=== PATIENT | female | born 1970 | race Caucasian/White ===

== ENCOUNTER 2019-08-21 05:00 | Emergency (ER) | payer OTHER ==
[~2019-08-21] VITALS: Ht 170.2 cm; Wt 137.0 kg
[2019-08-21 05:05] VITALS: Ht 170.2 cm; Wt 137.0 kg
[2019-08-21 06:01] VITALS: BP 136/85
== END 2019-08-21 06:01 | disposition home or self-care (01) ==
LOC: ED 05:00
DX: F41.9 Anxiety disorder, unspecified (principal); Z88.2 Allergy status to sulfonamides; E11.9 Type 2 diabetes mellitus without complications; Z88.8 Allergy status to other drugs, medicaments and biological substances; Z90.49 Acquired absence of other specified parts of digestive tract; Z90.89 Acquired absence of other organs

== ENCOUNTER 2019-09-11 23:18 | Inpatient (IN) | payer OTHER ==
[~2019-09-11] VITALS: Ht 170.2 cm; Wt 135.7 kg
[2019-09-11 23:23] VITALS: Ht 170.2 cm; Wt 135.7 kg
--- NOTE | 2019-09-11 23:49 | NUR ---
PT PRESENTS TO ED WITH C/C OF SOB AND CHEST PAIN. PT REPORTS "I'M JUST GASPING AND LIKE IT FEELS LIKE SOMETHING HEAVY IS SITTING ON MY CHEST." PT REPORTS CHEST PAIN IS RADIATING TO ARMS AND LEGS. PT IS ALSO REPORTING HEADACHE, DESCRIBED "A RUBBER BAND AROUND MY HEAD." PT IS SPEAKING IN FULL CLEAR SENTENCES, PT IS HYPERVENTILATING, STATES "I'M JUST GASPING AND I DON'T KNOW WHY." SPO2 @ 98%. PT ALSO REPORTS A "RUNNY NOSE", "SNEEZING", NAUSEA AND DIARRHEA X2 DAYS. PT DENIES COUGH, DENIES FEVER. REPORTS SHE WAS SEEN YESTERDAY BY PMD AND TESTED NEGATIVE FOR THE FLU AND STREP. PT IS AWAKE, AAOX4, TREMOR AND SHAKING NOTED TO BILATERAL LOWER EXTREMITIES. PT REPORTS "THIS IS NEW FOR ME. I DONT KNOW WHY IT'S HAPPENING." DR. PIMENTEL MADE AWARE. AWAITING MSE. CALL LIGHT IN REACH.
[2019-09-12 00:19] LABS: BASOPHIL % 0.3 % (0-2); PLATELET COUNT 359 x10^3mcL (130-400)
[2019-09-12 00:20] LABS: RED CELL DISTRIBUTION WIDTH 17.3 % (11.5-14.5)
--- NOTE | 2019-09-12 00:20 | NUR ---
PATIENT INSTRUCTED TO PROVIDE URINE SAMPLE MANJULA.
[2019-09-12 00:26] LABS: CALCIUM 9.4 mg/dL (8.5-10.1); CHLORIDE SERUM 105 mmol/L (98-107); CREATININE SERUM 0.9 mg/dL (0.6-1.0); GFR1 > 60 mL/min; GLUCOSE SERUM 108 mg/dL (74-106); POTASSIUM SERUM 3.8 mmol/L (3.5-5.1); SODIUM SERUM 141 mmol/L (136-145)
[2019-09-12 00:38] LABS: ALBUMIN 3.4 g/dL (3.4-5.0); ALKALINE PHOSPHATASE 153 U/L (46-116); ALT/SGPT 61 U/L (14-59); AST/SGOT 41 U/L (15-37); BILIRUBIN TOTAL 0.5 mg/dL (0.20-1.00); LIPASE 121 IU/L (73-393); TOTAL PROTEIN, SERUM 7.8 g/dL (6.4-8.2)
[2019-09-12 03:58] LABS: UA SPECIFIC GRAVITY >=1.030 (1.005-1.035); microscopic required? YES; urine erythrocyte TRACE (NEGATIVE)
--- NOTE | 2019-09-12 04:02 | NUR ---
REPORT GIVEN TO JANENE MANSFIELD IN TELE.
[2019-09-12 04:05] LABS: FREE T4 1.17 ng/dL (0.76-1.46); FREE THYROXINE INDEX 3.2 ug/dL (1.4-4.5); T4(THYROXINE) 11.1 ug/dL (4.7-13.3)
[2019-09-12 04:07] LABS: AMPHETAMINE QUAL UR NONE DETECTED (See below)
[2019-09-12 04:08] LABS: T3 TOTAL 1.05 ng/mL
--- NOTE | 2019-09-12 04:10 | NUR ---
PT ARRIVED ON THE FLOOR FROM ER VIA [facility] ACCOMAPNIED BY NURSE. PT IS ADMITTED W/ C/O BACK PAIN RADIATING TO THE CHEST. SHE IS ALERT,ORIENTED X4 . SHE IS C/O HEADACHE , BACK AND CHEST PAIN 9/10. PT DENIED HAVING COUGH. LUNG SOUNDS CLEAR. NO SOB ON ROOM AIR. BOWEL SOUNDS ACTIVE. ABDOMEN IS OBESE AND SOFT. NO C/O N/V. SHE DENIED DYSURIA. W/ HL TO RT WRIST. PT ORIENTED TO ROOM AND INSTRUCTED ON THE USE OF CALL LIGHT.
[2019-09-12 04:43] VITALS: BP 127/81
--- NOTE | 2019-09-12 06:20 | NUR ---
PT SEEN BY DR. MARTINEZ. PTTOLD DR. MARTINEZ THAT MORPHINE DID NOT HELP WITH THE PAIN.
[2019-09-12] MEDS ORDERED: LEVOTHYROXIN0.075 M2 PO (08:27)
[2019-09-12 08:28] VITALS: BP 144/82
[2019-09-12] MEDS ORDERED: TOPIRAMATE200 M1 PO (08:28)
[2019-09-12] MEDS ORDERED: BUPROPION HCL150 M1 PO (08:28)
[2019-09-12] MEDS ORDERED: TIZANIDINE4 M1 PO (08:28)
[2019-09-12] MEDS ORDERED: LEVOTHYROXINE0.2 M2 PO (08:28)
[2019-09-12] MEDS ORDERED: TRAZODONE100 MG PO (08:29)
[2019-09-12] MEDS ORDERED: XARELTO20 M1 PO (08:29)
[2019-09-12] MEDS ORDERED: BUSPIRONE HCL10 MG PO (08:30)
[2019-09-12] MEDS ORDERED: ACETAMINOPHEN &1 TA1 PO (08:30)
[2019-09-12] MEDS ORDERED: TRAMADOL HCL50 MG PO (08:30)
[2019-09-12] MEDS ORDERED: ROPINIROLE PO (08:30)
--- NOTE | 2019-09-12 08:30 | NUR ---
ALERT AND ORIENTED. BREATHING FREELY ON RA. SAYS SHE HAS INCREASED CHEST PAIN WITH DEEP BREATHING. MIDSTERNAL CHEST PAIN RADIAITING TO BACK. NS INFUSING 100 CC HOUR TO RT WRIST. BRP. SLIGHT GENERALIZED WEAKNESS. VSS. CALL LIGHT WITHIN REACH. TELE # [address] WAVE.
[2019-09-12 16:52] VITALS: BP 144/83
--- NOTE | 2019-09-12 19:48 | NUR ---
PT WAS PLACED ON ISOLATION TO R/O COVID. SENT [facility] FOR COVID AND INFLUENZA A & B TO LAB. ONGOING MEDSTERNAL PAIN RADIATING TO BACK. NEW ORDER INCREASE MORPHINE TO 3 MG IV. ECHO COMPLETED. PT SEEN BY DR. FERRER. DR. FERRER WANTED TO SEE ECHO BEFORE PT WAS DC'D TO HOME. WANTS TO R/O PERIOCARDITIS. INDEPENDENT W ADL'S. CALL LIGHT WITHIN REACH.
[2019-09-12 20:00] VITALS: BP 150/82
--- NOTE | 2019-09-12 20:00 | NUR ---
RECEIVED PT AWAKE ALERT AND VERBALLY RESPONSIVE.C/O CHEST DISCOMFORT NON-RADIATING TO ARMS 9/10 TO PRESSURE LIKE PAIN.BP 150/82 MMHG,HR 89.MORPHINE 3 MG IVP ADMINISTERED.ON AND OFF COUGHING NOTED WITH C/O SORETHROAT AND +PHLEGM.DENIES SOB/DIFFICULTY BREATHING.TOLERATING ROOMAIR @ 97.4F.O2 SAT @ 96% RA.ON DROPLET PRECAUTION FOR PUI COVID.WILL OBSERVE GOODHANDWASHIGNTECHNIQUE.WILL CONTINUE TO MONITOR.
--- NOTE | 2019-09-13 04:39 | NUR ---
PT SLEPT WITH INTERVALS.CONTINUES TO C/O CHEST DISCOMFORT.8/10 TO PRESSURE LIKE PAIN.MORPHINE 3 MG IVP GIVEN ALMOST Q3H NEEDED WITH SOME RELIEF.ON DROPLET PRECAUTION FOR POSSIBLE COVID-PUI.GOODHANDWASHIGN TECHNIQUE OBSERVED.ALL NEEDS MET.WILL CONTINUE TO MONITOR.
[2019-09-13 06:27] VITALS: BP 132/73
--- NOTE | 2019-09-13 07:10 | NUR ---
SEEN AOX4, NOT IN DISTRESS, TELE 18, NSR WITH DEPRESSED ST, PALPABLE PULSES, NO EDEMA, CTA ON BLF, +BS, LAST BM 09/13/19, VOIDS WITH NO DYSURIA, GENERALIZED WEAKNESS, FULL ROM, SKIN DRY AND INTACT, CHEST PAIN AND HEADACHE 02/22 , IV INTACT AND PATENT, NO REDNESS OR INFILTRATION. CALL LIGHT WITHIN REACH. BED AT LOWETS POSITION.
[2019-09-13 07:36] LABS: CALCIUM 8.8 mg/dL (8.5-10.1); CARBON DIOXIDE 27.6 mmol/L (21-32); CHLORIDE SERUM 107 mmol/L (98-107); CREATININE SERUM 0.8 mg/dL (0.6-1.0); GFR1 > 60 mL/min; GLUCOSE SERUM 88 mg/dL (74-106); MAGNESIUM 1.8 mg/dL (1.8-2.4); PHOSPHOROUS 3.7 mg/dL (2.5-4.9); POTASSIUM SERUM 4.1 mmol/L (3.5-5.1); SODIUM SERUM 142 mmol/L (136-145)
[2019-09-13 07:48] VITALS: BP 168/84
[2019-09-13 08:36] LABS: BASOPHIL % 0.4 % (0-2); PLATELET COUNT 257 x10^3mcL (130-400)
--- NOTE | 2019-09-13 08:56 | NUR ---
MEDICATIONS GIVEN PER EMAR. MORPHIN IVP GIVEN FOR CHEST P AND HEADACHE 02/22/
[2019-09-13 08:59] LABS: RED CELL DISTRIBUTION WIDTH 17.2 % (11.5-14.5)
[2019-09-13 10:18] LABS: BILIRUBIN DIRECT 0.23 mg/dL (0.0-0.2); BILIRUBIN TOTAL 0.56 mg/dL (0.20-1.00); TOTAL PROTEIN, SERUM 6.3 g/dL (6.4-8.2)
[2019-09-13 10:19] LABS: ALBUMIN 3.1 g/dL (3.4-5.0)
--- NOTE | 2019-09-13 12:04 | NUR ---
MORPHINE IVP GIVEN FOR CHEST PAIN, 02/22.
[2019-09-13] MEDS ORDERED: CIPRO500 MG PO (14:33)
[2019-09-13 15:46] VITALS: BP 168/84
--- NOTE | 2019-09-13 16:53 | NUR ---
DR FERRER SEEN PATIENT. PER DR FERRER, PATIENT IS OK. NON CARDIAC CONDITION.
--- NOTE | 2019-09-13 17:25 | NUR ---
DISCHARGE INSTRUCTIONS GIVEN TO PATIENT, INSTRUCTED TO BRING MASK AND PROTECT OTHERS FROM INFECTION WITH MASK, TO QUARANTINE FOR 15 DAYS, TO GO TO ER IF S/S IS WORSE, TO FF UP WITH APPOINTMENT WITH PCP, TO EXPECT A CALL FROM INFECTIOUS DISEASE NURSE IF COVID RESULT IS POSITIVE. TELE 18 REMOVED AND GIVEN TO [facility]ES[facility]. ID BAND AND IV REMOVED
[2019-09-13 17:41] VITALS: BP 147/83
--- NOTE | 2019-09-13 18:07 | NUR ---
DISCHARGE PER WHEEL CHAIR ACCOMPANIED BY SELF. PATIENT WAS WEARING MASK WHILE TRANSPORTED OUT
--- NOTE | 2019-09-16 13:50 | NUR ---
INFECTION PREVENTION REPORT FROM LAB RE. SAPPHIRE SPECIMEN NEEDING TO BE RE-COLLECTED SPOKE WITH PATIENT AT LENGTH ABOUT THIS. SHE CONVERSED WITH HER AND THEY DECIDED SHE WOULD NOT TEST AGAIN. SHE HAS CONCERNS ABOUT GOING TO THE ER AND BEING EXPOSED. SHE STATES SHE IS FEELING BETTER AND NO ONE ELSE IN THE HOUSE ( AND CHILDREN) IS UNWELL. ASKED HER TO CALL BACK IF SHE CHANGES HER MIND OR HAS CONCERNS.
== END 2019-09-13 18:07 | disposition home or self-care (01) | DRG 206 ==
LOC: ED 23:18 → DU 09-12 02:48
PROVIDERS: Emergency Medicine; Internal Medicine; ADMIT Internal Medicine
DX: M94.0 Chondrocostal junction syndrome [Tietze] (principal); Z68.42 Body mass index [BMI] 45.0-49.9, adult; K21.9 Gastro-esophageal reflux disease without esophagitis; I45.81 Long QT syndrome; A08.4 Viral intestinal infection, unspecified; R74.0 Nonspecific elevation of levels of transaminase and lactic acid dehydrogenase [LDH]; G47.00 Insomnia, unspecified; E89.0 Postprocedural hypothyroidism; M79.7 Fibromyalgia; E78.5 Hyperlipidemia, unspecified; E66.01 Morbid (severe) obesity due to excess calories; F32.9 Major depressive disorder, single episode, unspecified; F41.9 Anxiety disorder, unspecified; Z20.828 Contact with and (suspected) exposure to other viral communicable diseases; Z86.718 Personal history of other venous thrombosis and embolism; Z88.2 Allergy status to sulfonamides; Z85.850 Personal history of malignant neoplasm of thyroid; Z88.8 Allergy status to other drugs, medicaments and biological substances; Z90.49 Acquired absence of other specified parts of digestive tract; Z90.89 Acquired absence of other organs; Z90.6 Acquired absence of other parts of urinary tract; Z90.710 Acquired absence of both cervix and uterus; Z90.722 Acquired absence of ovaries, bilateral
CPT/HCPCS: 83880; 84439; 87804; G0378; J1885; J2270; J2405; J7030; Q0092; Q9967; U0002

== ENCOUNTER 2019-09-27 15:32 | Emergency (ER) | payer OTHER, SELFPAY ==
[~2019-09-27] VITALS: Ht 170.2 cm; Wt 127.0 kg
[~2019-09-27 15:32] MED LIST: ACETAMINOPHEN &1 TA1 PO; BUPROPION HCL150 M1 PO; BUSPIRONE HCL10 MG PO; CIPRO500 MG PO; LEVOTHYROXIN0.075 M2 PO; LEVOTHYROXINE0.2 M2 PO; ROPINIROLE PO; TIZANIDINE4 M1 PO; TOPIRAMATE200 M1 PO; TRAMADOL HCL50 MG PO; TRAZODONE100 MG PO; XARELTO20 M1 PO
[2019-09-27 16:21] VITALS: Ht 170.2 cm; Wt 127.0 kg
[2019-09-27 17:21] LABS: BASOPHIL % 0.3 % (0-2); PLATELET COUNT 314 x10^3mcL (130-400)
[2019-09-27 17:25] LABS: RED CELL DISTRIBUTION WIDTH 16.5 % (11.5-14.5)
[2019-09-27] MEDS ORDERED: WELLBUTRIN SR100 M1 (17:31)
[2019-09-27] MEDS ORDERED: ATIVAN1 MG PO (17:31)
[2019-09-27] MEDS ORDERED: PROZAC10 M2 (17:32)
[2019-09-27 17:36] LABS: CALCIUM 9.4 mg/dL (8.5-10.1); CARBON DIOXIDE 26.8 mmol/L (21-32); CHLORIDE SERUM 103 mmol/L (98-107); CREATININE SERUM 0.8 mg/dL (0.6-1.0); GFR1 > 60 mL/min; GLUCOSE SERUM 98 mg/dL (74-106); POTASSIUM SERUM 4.1 mmol/L (3.5-5.1); SODIUM SERUM 141 mmol/L (136-145)
[2019-09-27 17:37] LABS: microscopic required? NO
[2019-09-27 17:41] LABS: ALBUMIN 3.4 g/dL (3.4-5.0); ALKALINE PHOSPHATASE 87 U/L (46-116); ALT/SGPT 31 U/L (14-59); AST/SGOT 26 U/L (15-37); BILIRUBIN TOTAL 0.3 mg/dL (0.20-1.00); C REACTIVE PROTEIN 1.9 mg/dL (<=0.9); LACTIC DEHYDROGENASE (LDH) 155 U/L (100-190); LIPASE 163 IU/L (73-393); TOTAL PROTEIN, SERUM 7.3 g/dL (6.4-8.2)
[2019-09-27 18:02] LABS: UA SPECIFIC GRAVITY 1.025 (1.005-1.035); urine erythrocyte NEGATIVE (NEGATIVE)
[2019-09-27 19:40] VITALS: BP 153/81
== END 2019-09-27 19:40 | disposition home or self-care (01) ==
LOC: ED 15:32
PROVIDERS: Emergency Medicine
DX: J06.9 Acute upper respiratory infection, unspecified (principal); R07.89 Other chest pain; Z20.828 Contact with and (suspected) exposure to other viral communicable diseases; M79.7 Fibromyalgia; E11.9 Type 2 diabetes mellitus without complications; Z85.850 Personal history of malignant neoplasm of thyroid; Z88.2 Allergy status to sulfonamides; Z88.8 Allergy status to other drugs, medicaments and biological substances
CPT/HCPCS: 36600; 83880; 87804; J1885; J2270; J2405; J7030; Q0092

== ENCOUNTER 2019-10-20 18:30 | Inpatient (IN) | payer OTHER, SELFPAY ==
[~2019-10-20] VITALS: Ht 172.7 cm; Wt 138.4 kg
[~2019-10-20 18:30] MED LIST changes: +ATIVAN1 MG PO; +PROZAC10 M2 PO; +WELLBUTRIN SR100 M1 PO
[2019-10-20 18:52] VITALS: Ht 172.7 cm; Wt 138.4 kg
[2019-10-20 19:49] LABS: BASOPHIL % 0.4 % (0-2); PLATELET COUNT 303 x10^3mcL (130-400); RED CELL DISTRIBUTION WIDTH 16.3 % (11.5-14.5)
[2019-10-20 19:53] LABS: CALCIUM 9.3 mg/dL (8.5-10.1); CARBON DIOXIDE 26.8 mmol/L (21-32); CHLORIDE SERUM 105 mmol/L (98-107); CREATININE SERUM 0.7 mg/dL (0.6-1.0); GFR1 > 60 mL/min; GLUCOSE SERUM 107 mg/dL (74-106); POTASSIUM SERUM 3.9 mmol/L (3.5-5.1); SODIUM SERUM 144 mmol/L (136-145)
[2019-10-20 19:59] LABS: ALBUMIN 3.7 g/dL (3.4-5.0); ALKALINE PHOSPHATASE 95 U/L (46-116); ALT/SGPT 41 U/L (14-59); AST/SGOT 36 U/L (15-37); BILIRUBIN TOTAL 0.3 mg/dL (0.20-1.00); C REACTIVE PROTEIN 1.9 mg/dL (<=0.9); LACTIC DEHYDROGENASE (LDH) 177 U/L (100-190); TOTAL PROTEIN, SERUM 7.1 g/dL (6.4-8.2)
[2019-10-20 21:39] LABS: UA SPECIFIC GRAVITY 1.025 (1.005-1.035); microscopic required? NO; urine erythrocyte NEGATIVE (NEGATIVE)
[2019-10-20] MEDS ORDERED: FORTAMET500 M1 PO (22:15)
[2019-10-20] MEDS ORDERED: TRAZODONE HCL300 MG PO (22:18)
[2019-10-20] MEDS ORDERED: ROPINIROLE PO (22:18)
[2019-10-20 23:41] LABS: MAGNESIUM 1.7 mg/dL (1.8-2.4); PHOSPHOROUS 3.3 mg/dL (2.5-4.9)
[2019-10-20 23:45] LABS: CHOLESTEROL/HDL RATIO 6.4
[2019-10-20 23:50] VITALS: BP 191/107
[2019-10-20 23:51] LABS: FREE T4 1.99 ng/dL (0.76-1.46)
[2019-10-20 23:53] LABS: AMPHETAMINE QUAL UR NONE DETECTED (See below); FREE THYROXINE INDEX 6.2 ug/dL (1.4-4.5); T4(THYROXINE) 19.4 ug/dL (4.7-13.3)
[2019-10-21 00:15] LABS: T3 TOTAL 1.41 ng/mL
[2019-10-21 06:14] VITALS: BP 180/100
[2019-10-21 06:47] LABS: BASOPHIL % 0.3 % (0-2); PLATELET COUNT 333 x10^3mcL (130-400)
[2019-10-21 06:58] LABS: CALCIUM 9.3 mg/dL (8.5-10.1); CARBON DIOXIDE 23.2 mmol/L (21-32); CHLORIDE SERUM 103 mmol/L (98-107); CREATININE SERUM 0.8 mg/dL (0.6-1.0); GFR1 > 60 mL/min; GLUCOSE SERUM 126 mg/dL (74-106); MAGNESIUM 1.7 mg/dL (1.8-2.4); PHOSPHOROUS 4.4 mg/dL (2.5-4.9); POTASSIUM SERUM 3.9 mmol/L (3.5-5.1); SODIUM SERUM 141 mmol/L (136-145)
[2019-10-21 07:00] VITALS: BP 157/95
[2019-10-21 07:50] VITALS: BP 139/88
[2019-10-21 12:45] VITALS: BP 109/64
[2019-10-21 17:46] VITALS: BP 104/74
[2019-10-21 21:30] VITALS: BP 102/67
[2019-10-22 05:09] VITALS: BP 105/66
[2019-10-22 06:57] LABS: CALCIUM 9.1 mg/dL (8.5-10.1); CARBON DIOXIDE 26.4 mmol/L (21-32); CHLORIDE SERUM 102 mmol/L (98-107); CREATININE SERUM 0.8 mg/dL (0.6-1.0); GFR1 > 60 mL/min; GLUCOSE SERUM 97 mg/dL (74-106); MAGNESIUM 1.9 mg/dL (1.8-2.4); PHOSPHOROUS 4.9 mg/dL (2.5-4.9); SODIUM SERUM 139 mmol/L (136-145)
[2019-10-22 08:05] VITALS: BP 153/88
[2019-10-22 08:15] LABS: BASOPHIL % 0.3 % (0-2); PLATELET COUNT 269 x10^3mcL (130-400)
[2019-10-22 12:20] VITALS: BP 116/72
[2019-10-22 17:30] VITALS: BP 125/80
[2019-10-22 21:00] VITALS: BP 115/66
[2019-10-23 05:30] VITALS: BP 148/85
[2019-10-23 09:36] LABS: PLATELET COUNT 331 x10^3mcL (130-400)
[2019-10-23 09:47] LABS: RED CELL DISTRIBUTION WIDTH 14.9 % (11.5-14.5)
[2019-10-23 10:01] LABS: C REACTIVE PROTEIN 3.5 mg/dL (<=0.9); CALCIUM 9.8 mg/dL (8.5-10.1); CARBON DIOXIDE 22.7 mmol/L (21-32); CHLORIDE SERUM 102 mmol/L (98-107); CREATININE SERUM 0.9 mg/dL (0.6-1.0); GFR1 > 60 mL/min; GLUCOSE SERUM 98 mg/dL (74-106); MAGNESIUM 1.9 mg/dL (1.8-2.4); PHOSPHOROUS 5.4 mg/dL (2.5-4.9); SODIUM SERUM 138 mmol/L (136-145)
[2019-10-23 12:31] VITALS: BP 144/86
[2019-10-23 13:03] VITALS: BP 156/79
[2019-10-23 13:53] LABS: MONOCYTE 3 % (0-7); SEGMENTED NEUTROPHILS 90 % (37-75)
[2019-10-23 13:54] LABS: PLATELET MORPHOLOGY PLATELETS NORMAL; rbc morphology (normal/abnorm) ABNORMAL (NORMAL)
== END 2019-10-23 14:05 | disposition home or self-care (01) | DRG 872 ==
LOC: ED 18:30 → DU 22:20
PROVIDERS: Emergency Medicine; ADMIT Student in an Organized Health Care Education/Training Program
DX: A41.9 Sepsis, unspecified organism (principal); I16.0 Hypertensive urgency; N61.0 Mastitis without abscess; F32.9 Major depressive disorder, single episode, unspecified; E11.9 Type 2 diabetes mellitus without complications; E03.9 Hypothyroidism, unspecified; M79.7 Fibromyalgia; F41.9 Anxiety disorder, unspecified; I48.91 Unspecified atrial fibrillation; E78.5 Hyperlipidemia, unspecified; Z86.718 Personal history of other venous thrombosis and embolism; Z88.2 Allergy status to sulfonamides; Z88.8 Allergy status to other drugs, medicaments and biological substances; Z20.828 Contact with and (suspected) exposure to other viral communicable diseases
CPT/HCPCS: 76641; 82962; 83880; 84439; 85378; 87804; G0378; J0360; J1815; J1885; J2060; J2270; J2405; J2765; J3010; J3490; J7030; Q0092

== ENCOUNTER 2019-12-15 19:20 | Emergency (ER) | payer OTHER ==
[~2019-12-15] VITALS: Ht 170.2 cm; Wt 131.5 kg
[~2019-12-15 19:20] MED LIST changes: +FORTAMET500 M1 PO; +TRAZODONE HCL300 MG PO
[2019-12-15 19:30] VITALS: Ht 170.2 cm; Wt 131.5 kg
[2019-12-16 04:27] VITALS: BP 147/93
== END 2019-12-16 03:14 | disposition home or self-care (01) ==
LOC: ED 19:20
DX: R51 Headache (principal); E11.9 Type 2 diabetes mellitus without complications; E66.01 Morbid (severe) obesity due to excess calories; M79.7 Fibromyalgia; M06.9 Rheumatoid arthritis, unspecified; F41.9 Anxiety disorder, unspecified; Z76.0 Encounter for issue of repeat prescription; Z68.42 Body mass index [BMI] 45.0-49.9, adult
CPT/HCPCS: J2270; J3490

== ENCOUNTER 2020-04-06 00:53 | Emergency (ER) | payer OTHER ==
[~2020-04-06] VITALS: Ht 170.2 cm; Wt 145.1 kg
[2020-04-06 01:11] VITALS: Ht 170.2 cm; Wt 145.1 kg
[2020-04-06 04:14] LABS: PLATELET COUNT 289 x10^3mcL (130-400); RED CELL DISTRIBUTION WIDTH 16.8 % (11.5-14.5)
[2020-04-06 04:21] LABS: CALCIUM 8.5 mg/dL (8.5-10.1); CARBON DIOXIDE 27.5 mmol/L (21-32); CHLORIDE SERUM 100 mmol/L (98-107); CREATININE SERUM 0.8 mg/dL (0.6-1.0); GFR1 > 60 mL/min; GLUCOSE SERUM 91 mg/dL (74-106); POTASSIUM SERUM 3.9 mmol/L (3.5-5.1); SODIUM SERUM 135 mmol/L (136-145)
[2020-04-06 04:27] LABS: ALKALINE PHOSPHATASE 83 U/L (46-116); ALT/SGPT 74 U/L (14-59); AST/SGOT 46 U/L (15-37); BILIRUBIN TOTAL 0.3 mg/dL (0.20-1.00); TOTAL PROTEIN, SERUM 7.1 g/dL (6.4-8.2)
[2020-04-06 04:32] LABS: ALBUMIN 3.2 g/dL (3.4-5.0)
[2020-04-06 05:54] VITALS: BP 179/108
== END 2020-04-06 05:54 | disposition home or self-care (01) ==
LOC: ED 00:53
PROVIDERS: Student in an Organized Health Care Education/Training Program
DX: M75.102 Unspecified rotator cuff tear or rupture of left shoulder, not specified as traumatic (principal); M75.101 Unspecified rotator cuff tear or rupture of right shoulder, not specified as traumatic; F41.9 Anxiety disorder, unspecified; R07.89 Other chest pain; E11.9 Type 2 diabetes mellitus without complications; Z88.2 Allergy status to sulfonamides; Z88.6 Allergy status to analgesic agent; Z88.8 Allergy status to other drugs, medicaments and biological substances
CPT/HCPCS: J2270; Q0092